=== PATIENT | male | born 1955 | race Caucasian/White ===

== ENCOUNTER → 2017-06-14 | Outpatient (CLI) | payer MEDICARE, OTHER ==
[2017-06-15 06:39] LABS: LUTEINIZING HORMONE 3.1 mIU/mL (1.7-8.6)
[2017-06-16 07:18] LABS: PROLACTIN 10.9 ng/mL (4.0-15.2)
[2017-06-18 07:14] LABS: ESTROGENS TOTAL 72 pg/mL (40-115)
== END ==
LOC: OD 08:15
PROVIDERS: ATTEND Urology
DX: E29.1 Testicular hypofunction (principal); N40.1 Benign prostatic hyperplasia with lower urinary tract symptoms
CPT/HCPCS: 36415; 82672; 83002; 84146; 84153; 84403

== ENCOUNTER → 2017-07-09 | Outpatient (CLI) | payer MEDICARE, OTHER | LOC: OD 10:24 | PROVIDERS: ATTEND Urology | DX: E29.1 Testicular hypofunction (principal); N40.1 Benign prostatic hyperplasia with lower urinary tract symptoms | CPT/HCPCS: 36415; 83002; 84146; 84403 ==

== ENCOUNTER → 2017-09-02 | Outpatient (CLI) | payer MEDICARE, OTHER | LOC: OD 07:11 | PROVIDERS: ATTEND Urology | DX: E29.1 Testicular hypofunction (principal) | CPT/HCPCS: 36415; 82672; 83002; 84403 ==

== ENCOUNTER → 2017-10-14 | Outpatient (CLI) | payer MEDICARE, OTHER | LOC: OD 07:19 | PROVIDERS: ATTEND Urology | DX: Z53.9 Procedure and treatment not carried out, unspecified reason (principal) ==

== ENCOUNTER → 2017-10-21 | Outpatient (CLI) | payer MEDICARE, OTHER | LOC: OD 10:07 | PROVIDERS: ATTEND Urology | DX: E29.1 Testicular hypofunction (principal) | CPT/HCPCS: 36415; 82672; 83002; 84403 ==

== ENCOUNTER → 2018-03-21 | Day surgery (SDC) | payer MEDICARE, OTHER ==
--- NOTE | 2018-03-21 11:37 | RADIOLOGY REPORT (SQ) ---
EXAM DESCRIPTION: ARTHRO SHOULDER INJECTION; FLUORO/NEEDLE PLACEMENT COMPLETED DATE/TIME: 03/21/2018 10:27 am REASON FOR STUDY: LEFT SHOULDER PAIN M25.512 PAIN IN LEFT SHOULDER COMPARISON: None. FLUOROSCOPY TIME: 0.5 minutes 4 digital fluoroscopic images saved to PACS. LIMITATIONS: None. PROCEDURE: Procedure, risks, benefits and alternatives explained to patient who then gave written co nsent. The posterior left shoulder was marked and a time out was called for correct procedure verific ation. Posterior entry site marked using fluoroscopic guidance. Shoulder prepped and draped using s terile technique. Local anesthesia achieved using 9 mL of 1% lidocaine injection. 22 gauge spinal n eedle introduced into the joint space under direct fluoroscopic visualization. Non-ionic contrast ins tilled to confirm intra-articular position. Dilute gadolinium solution then injected. Needle removed and entry site covered with sterile bandage. No immediate complications noted. TECHNIQUE: Digital images acquired during fluoroscopy and stored on PACS. Patient immediately take n to the MR suite for additional imaging. INJECTION LOCATION: Left posterior glenohumeral joint CONTRAST TYPE AND AMOUNT: 1 mL of Omnipaque 300 was injected to confirm intra-articular needle placem ent followed by 10 mL of dilute Dotarem/Saline mixture. IMPRESSION: SUCCESSFUL NEEDLE PLACEMENT AND INJECTION FOR LEFT SHOULDER MR ARTHROGRAM USING POSTERIO R APPROACH. COMMENT: Quality ID [id number]: Final reports for procedures using fluoroscopy that document radiation exp osure indices, or exposure time and number of fluorographic images (if radiation exposure indices are not available) TECHNICAL DOCUMENTATION: JOB ID: [id number] [employer]- All Rights Reserved Reading location - IP/workstation name: [email or web address]
--- NOTE | 2018-03-21 11:58 | RADIOLOGY REPORT (SQ) ---
EXAM DESCRIPTION: MRI LT UPPER JOINT WITH COMPLETED DATE/TIME: 03/21/2018 11:00 am REASON FOR STUDY: LEFT SHOULDER PAIN M25.512 PAIN IN LEFT SHOULDER COMPARISON: Arthrogram images today TECHNIQUE: Left shoulder images acquired and stored on PACS. Oblique coronal, oblique sagittal, and axial imaging to include fat sensitive sequences as T1, water sensitive sequences as FST2/STIR, and c ontrast sensitive sequences as FST1. LIMITATIONS: None. FINDINGS: JOINT DISTENTION: Adequate distention for interpretation. There is leakage of contrast fr om the joint space into the subacromial/subdeltoid bursa through a rotator interval/anterior supraspi natus tendon tear BONE MARROW AND CORTEX: Normal. No significant osteophytes. Tiny subcortical cysts, left humeral hea d greater tuberosity. AC JOINT: Type II acromion. Bulky acromioclavicular joint hypertrophy with bony spurring along the un dersurface mildly narrowing the subacromial space. There is fluid in the subacromial/subdeltoid burs a with gadolinium related to a supraspinatus tear. GLENOHUMERAL JOINT: No subluxation or dislocation. No focal chondral defects or reactive bone changes . ROTATOR CUFF: Full-thickness anterior supraspinatus tear extending into the rotator interval, best sh own on coronal images 4-6 and sagittal images 5-9. Remainder of the supraspinatus and infraspinatus tendons are thickened and high in signal from tendinopathy. Distal subscapularis tendon is thin but intact axial image 10. LABRUM AND BICEPS LABRAL COMPLEX: Intra-articular long head biceps tendon is not identified. Short h ead biceps tendon intact on coronal image 3. Probable [place] complex along the anterior superior lab rum on sagittal image 13-15 and axial images 7-11. Remainder of the labrum is grossly intact. INFERIOR LABRAL COMPLEX: Bony glenoid and labrum intact. IGHL intact without thickening or tear. No p aralabral cysts. ADJACENT SOFT TISSUES: No masses or nodes. OTHER: No other significant finding. IMPRESSION: Anterior supraspinatus tear extending into the rotator interval. Long-head biceps tendon intra-articular segment is not identified, likely torn Diffuse infraspinatus tendinopathy Probable [place] complex, with anatomic variant anterior superior labrum TECHNICAL DOCUMENTATION: JOB ID: [id number] [employer]- All Rights Reserved Reading location - IP/workstation name: [email or web address]
== END ==
LOC: RAD 08:56
PROVIDERS: ATTEND Orthopaedic Surgery
DX: M25.512 Pain in left shoulder (principal); M75.112 Incomplete rotator cuff tear or rupture of left shoulder, not specified as traumatic; S46.112A Strain of muscle, fascia and tendon of long head of biceps, left arm, initial encounter; X58.XXXA Exposure to other specified factors, initial encounter
CPT/HCPCS: 73222; 77002; 23350; A9576

== ENCOUNTER → 2018-03-27 | Outpatient (CLI) | payer MEDICARE, OTHER ==
[2018-03-27 11:13] LABS: ABSOLUTE BASOPHILS # (AUTO) 0.1 10^3/uL (0.0-0.2); ABSOLUTE EOSINOPHILS # (AUTO) 0.1 10^3/uL (0.0-0.6); ABSOLUTE LYMPHOCYTES (AUTO) 1.9 10^3/uL (0.5-4.7); ABSOLUTE MONOCYTES (AUTO) 0.5 10^3/uL (0.1-1.4); BASOPHILS % (AUTO) 1.3 % (0-2); EOSINOPHILS % (AUTO) 1.3 % (0-6); LYMPHOCYTES % (AUTO) 29.2 % (13-45); MEAN CORPUSCULAR HEMOGLOBIN 30.7 pg (27.0-33.4); MEAN CORPUSCULAR VOLUME 88 fl (80-97); MONOCYTES % (AUTO) 7.1 % (3-13); PLATELET COUNT 318 10^3/uL (150-450); RED CELL DISTRIBUTION WIDTH 12.6 % (11.5-14.0); SEGMENTED NEUTROPHILS % (AUTO) 61.1 % (42-78); TOTAL CELLS COUNTED % (AUTO) 100 %; WHITE BLOOD COUNT 6.6 10^3/uL (4.0-10.5)
[2018-03-27 11:30] LABS: ALANINE AMINOTRANSFERASE 19 U/L (21-72); ALBUMIN 4.7 g/dL (3.5-5.0); ALKALINE PHOSPHATASE 45 U/L (38-126); ANION GAP 11 (5-19); ASPARTATE AMINO TRANSFERASE 21 U/L (17-59); BILIRUBIN,DIRECT 0.4 mg/dL (0.0-0.4); BILIRUBIN,TOTAL 0.6 mg/dL (0.2-1.3); BLOOD UREA NITROGEN 18 mg/dL (7-20); CALCIUM 9.8 mg/dL (8.4-10.2); CARBON DIOXIDE 29 mmol/L (22-30); CHLORIDE 103 mmol/L (98-107); GLUCOSE 102 mg/dL (75-110); POTASSIUM 5.2 mmol/L (3.6-5.0); SODIUM 142.9 mmol/L (137-145); TOTAL PROTEIN 7.3 g/dL (6.3-8.2)
--- NOTE | 2018-03-27 13:24 | EKG REPORT ---
SEVERITY:- NORMAL ECG - SINUS RHYTHM : Confirmed by: José Antonio Rivera MD 27-Mar-2018 13:24:02
== END ==
LOC: OD 09:55
PROVIDERS: ATTEND Orthopaedic Surgery
DX: Z11.2 Encounter for screening for other bacterial diseases (principal); I10 Essential (primary) hypertension
CPT/HCPCS: 36415; 80053; 85025; 87070; 93005; 93010